=== PATIENT | female | born 1945 | race Two or more races ===

== ENCOUNTER 2017-01-21 15:54 | Emergency (ER) | payer OTHER ==
[~2017-01-21] VITALS: Ht 160 cm; Wt 59.0 kg
--- NOTE | 2017-01-21 16:05 | NUR ---
BIB RA C/O R L E PAIN X 2 WEEKS, DENIES TRAUMA, NAD NOTED, VSS, PUT ON MONITOR, WAITING FOR MD JENNIFER.
[2017-01-21] MEDS ORDERED: DEXAMETHASONE SOD PHOSPHATE 10 MG/ML VIAL ONE (16:43)
[2017-01-21] MEDS ORDERED: HYDROCODONE/APAP 5/325MG 1 EACH TABLET ONE (16:43)
[2017-01-21] MEDS ORDERED: KETOROLAC TROMETHAMINE INJ 30 MG/ML VIAL ONE (16:43)
[2017-01-21] MEDS ORDERED: ONDANSETRON 4 MG TAB.RAPDIS ONE (16:44)
--- NOTE | 2017-01-21 16:56 | NUR ---
XRAY AT BS
[2017-01-21] MEDS ORDERED: HYDROCODONE/APAP 5/325MG 1 EACH TABLET PO ONE (17:00)
[2017-01-21] MEDS ORDERED: KETOROLAC TROMETHAMINE INJ 60 MG/2 ML VIAL IM ONE (17:00)
[2017-01-21] MEDS ORDERED: ONDANSETRON 4 MG TAB.RAPDIS PO ONE (17:00)
[2017-01-21] MEDS ORDERED: DEXAMETHASONE SOD PHOSPHATE 4 MG/ML VIAL IM ONE (17:00)
[2017-01-21 18:22] VITALS: BP 129/79
--- NOTE | 2017-01-21 18:23 | NUR ---
Patient discharged to home in stable condition. Written and verbal after care instructions given. Patient verbalizes understanding of instruction. Prescription given.
== END 2017-01-21 18:24 | disposition home or self-care (01) ==
LOC: ER 15:57
DX: M17.11 Unilateral primary osteoarthritis, right knee (principal); M16.11 Unilateral primary osteoarthritis, right hip; I10 Essential (primary) hypertension; K21.9 Gastro-esophageal reflux disease without esophagitis; Z88.5 Allergy status to narcotic agent; Z88.8 Allergy status to other drugs, medicaments and biological substances
CPT/HCPCS: 73502; 73564-TC; A4606; J1100; J1885; Q0162; Z7610

== ENCOUNTER 2017-03-21 18:15 | Emergency (ER) | payer OTHER ==
[~2017-03-21] VITALS: Ht 154.9 cm; Wt 74.8 kg
--- NOTE | 2017-03-21 18:17 | NUR ---
PT AMBULATORY TO ER BED 10 C/O GENERALIZED WEAKNESS, FEVER AND CHILLS FOR 1 WEEK NOW. STATES NOT GETTING BETTER AND IS WORST TODAY. PT IS AFEBRILE [employer]EXER. AWAITING MD RODRIGUEZ.
[2017-03-21] MEDS ORDERED: IV NS 0.9% 1,000 ML BAG IV ONE (18:30)
--- NOTE | 2017-03-21 18:30 | NUR ---
DR HAMM AT BEDSIDE FOR EVAL.
--- NOTE | 2017-03-21 18:46 | NUR ---
IV LINE STARTED BLOOD DRAWN AND SENT TO LAB.
[2017-03-21 18:54] LABS: BASOPHILS % (AUTO) 0.3 % (0.0-2.0); EOSINOPHILS # (AUTO) 0.1 /CMM (0.0-0.7); HEMATOCRIT 38 % (33-45); HEMOGLOBIN 12.6 g/dL (11.5-14.8); LYMPHOCYTES # (AUTO) 0.6 /CMM (0.8-4.8); LYMPHOCYTES % (AUTO) 19.4 % (20.0-44.0); MEAN CORPUSCULAR HEMOGLOBIN 29 PG (26.0-33.0); MEAN CORPUSCULAR HGB CONC 33 g/dl (31.0-36.0); MEAN CORPUSCULAR VOLUME 86 fL (82-100); MONOCYTES # (AUTO) 0.6 /CMM (0.1-1.30); MONOCYTES % (AUTO) 19.5 % (2.0-12.0); NEUTROPHILS # (AUTO) 1.7 /CMM (1.8-8.9); NEUTROPHILS % (AUTO) 56.8 % (43.0-81.0); PLATELET COUNT (AUTO) 137 /CMM (150-450); RDW COEFFICIENT OF VARIATION 14.1 (11.5-15.0); RED BLOOD CELL COUNT(AUTO) 4.43 MIL/uL (4.0-5.2)
--- NOTE | 2017-03-21 18:55 | NUR ---
RADIOLOGY AT BEDSIDE FOR CHEST XRAY.
[2017-03-21 19:12] LABS: ALANINE AMINOTRANSFERASE 14 U/L (12-78); ALBUMIN 3.3 g/dL (3.4-5.0); ALKALINE PHOSPHATASE 126 U/L (46-116); ASPARTATE AMINOTRANSFERASE 14 U/L (15-37); BILIRUBIN,DIRECT 0.1 mg/dL (0.0-0.2); BILIRUBIN,TOTAL 0.5 mg/dL (0.2-1.0); CARBON DIOXIDE 24 mmol/L (21-32); CHLORIDE 106 mmol/L (98-107); CREATININE 2.5 mg/dL (0.6-1.3); GLUCOSE 236 mg/dL (74-106); POTASSIUM 3.8 mmol/L (3.5-5.1); SODIUM SERUM 140 mmol/L (136-145); TOTAL PROTEIN, SERUM 7.1 g/dL (6.4-8.2); UREA NITROGEN, BLOOD 43 mg/dL (7-18)
[2017-03-21 19:14] LABS: TROPONIN I < 0.017 ng/mL (0.00-0.056)
[2017-03-21 19:22] LABS: APPEARANCE,URINE Clear (CLEAR); BILIRUBIN,URINE LARGE (NEGATIVE); BLOOD, URINE Negative Ery/uL (NEGATIVE); COLOR,URINE Yellow (YELLOW); KETONES,URINE Trace (NEGATIVE); LEUKOCYTE ESTERASE ,URINE Negative (NEGATIVE); NITRITE, URINE Negative (NEGATIVE); PH,URINE 5.5 (5.0-8.0); PROTEIN,URINE 30 mg/dl (NEGATIVE); UGLUCOSE 100 MG/DL mg/dL (NEGATIVE); UROBILINOGEN,URINE 0.2 EU/dL (0.2)
[2017-03-21] MEDS ORDERED: ASPI-1152 PO (19:23)
[2017-03-21] MEDS ORDERED: COLE625T9 PO (19:23)
[2017-03-21] MEDS ORDERED: LINA5TAB PO (19:23)
[2017-03-21] MEDS ORDERED: DORZ10DR13 EACHEYE (19:23)
[2017-03-21] MEDS ORDERED: REPA1TAB PO (19:23)
[2017-03-21] MEDS ORDERED: PANT40TA2 PO (19:23)
[2017-03-21] MEDS ORDERED: AMLO5TAB4 PO (19:23)
[2017-03-21] MEDS ORDERED: HUM10VIA5 SQ ×2 (19:23)
[2017-03-21] MEDS ORDERED: HYDR25TA4 PO (19:23)
[2017-03-21] MEDS ORDERED: LATA2.5D2 EACHEYE (19:23)
[2017-03-21] MEDS ORDERED: SIMV20TA2 PO (19:23)
[2017-03-21] MEDS ORDERED: ISOS30TA6 PO (19:23)
[2017-03-21] MEDS ORDERED: METF10002 PO (19:23)
[2017-03-21] MEDS ORDERED: BRIM5DRO3 EACHEYE (19:23)
[2017-03-21 19:39] LABS: INR 1.04 (0.87-1.13); PROTHROMBIN TIME 10.8 SECS (9.5-12.7)
[2017-03-21 20:11] LABS: BACTERIA,URINE Few /HPF (None Seen); SQUAMOUS EPITHELIAL CELL,UR Moderate /HPF (None Seen)
[2017-03-21 20:12] LABS: RBC,URINE 0-2 /HPF (0-2); WBC,URINE 0-2 /HPF (0-3)
--- NOTE | 2017-03-21 20:48 | NUR ---
Patient discharged to home in stable condition. Written and verbal after care instructions given. Patient verbalizes understanding of instruction.
[2017-03-21 20:51] VITALS: BP 142/70
== END 2017-03-21 20:52 | disposition home or self-care (01) ==
LOC: ER 18:16
DX: J06.9 Acute upper respiratory infection, unspecified (principal); I10 Essential (primary) hypertension; K21.9 Gastro-esophageal reflux disease without esophagitis; Z79.82 Long term (current) use of aspirin; Z79.4 Long term (current) use of insulin
CPT/HCPCS: 36415; 71010-TC; 80048-TC; 80076-TC; 81000-TC; 83605-TC; 84484-TC; 85025-TC; 85730-TC; 87040-TC; 87086-TC; A4606; J7030; Z7610

== ENCOUNTER 2024-10-29 14:39 | Inpatient (IN) | payer MEDICARE, OTHER ==
[~2024-10-29] VITALS: Ht 154.9 cm; Wt 49.5 kg
[~2024-10-29 14:39] MED LIST: AMLO5TAB4 PO; ASPI-1420 PO; BRIM5DRO3 EACHEYE; COLE625T9 PO; DORZ10DR13 EACHEYE; HUM10VIA5 SQ; HYDR25TA4 PO; ISOS30TA86 PO; LATA2.5D2 EACHEYE; LINA5TAB PO; METF-442 PO; PANT40TA2 PO; REPA1TAB PO; SIMV20TA2 PO
[2024-10-29 15:14] LABS: PLATELET COUNT (AUTO) 76 K/uL (150-450); RED BLOOD CELL COUNT(AUTO) 3.35 MIL/uL (4.0-5.2); RED CELL DISTRIBUTION WIDTH 14.0 % (11.5-15.0); WHITE BLOOD COUNT (AUTO) 5.3 K/uL (4.3-11.0)
[2024-10-29] MEDS ORDERED: ASPI-1169 PO (15:16)
[2024-10-29] MEDS ORDERED: METH500T6 PO (15:16)
[2024-10-29] MEDS ORDERED: LOSA50TA39 PO ×2 (15:16)
[2024-10-29] MEDS ORDERED: ACET325T53 PO ×2 (15:16)
[2024-10-29] MEDS ORDERED: FOLI0.4T6 PO (15:16)
[2024-10-29] MEDS ORDERED: CLON0.1T PO (15:16)
[2024-10-29] MEDS ORDERED: ONDA-97 PO (15:16)
[2024-10-29] MEDS ORDERED: LEVO200T8 PO (15:16)
[2024-10-29] MEDS ORDERED: SEVE800T8 PO (15:16)
[2024-10-29] MEDS ORDERED: FAMO-131 PO (15:16)
[2024-10-29] MEDS ORDERED: HYDR-3973 PO (15:16)
[2024-10-29] MEDS ORDERED: CARV25TA PO (15:16)
[2024-10-29] MEDS ORDERED: DOCU100C36 PO (15:16)
[2024-10-29] MEDS ORDERED: AMLO-213 PO ×2 (15:16)
[2024-10-29] MEDS ORDERED: AMIN30LI2 PO (15:16)
[2024-10-29] MEDS ORDERED: NALO4SPR NS (15:16)
[2024-10-29] MEDS ORDERED: OLAN5TAB3 PO (15:16)
[2024-10-29] MEDS ORDERED: HYDR100T27 PO (15:16)
[2024-10-29] MEDS ORDERED: FOLI0.8T43 PO (15:16)
[2024-10-29 15:25] LABS: CALCIUM, SERUM 9.2 mg/dL (8.5-10.1); CREATININE 2.5 mg/dL (0.6-1.3); SODIUM SERUM 140 mmol/L (136-145); UREA NITROGEN, BLOOD 24 mg/dL (7-18)
[2024-10-29 15:34] LABS: ASPARTATE AMINOTRANSFERASE 11 U/L (15-37); TOTAL PROTEIN, SERUM 6.4 g/dL (6.4-8.2)
[2024-10-29 16:29] LABS: LYMPHOCYTES % (MANUAL) 24 % (16-48); MONOCYTES % (MANUAL) 11 % (0-11.0); NEUTROPHILS % (MANUAL) 63 (42-76); REACTIVE LYMPHOCYTES 2 % (0-0)
[2024-10-29 16:30] LABS: PLATELET ESTIMATE DECREASED
[2024-10-29] MEDS ORDERED: hydrALAZINE HCL IV 20 MG VIAL ONE (17:06)
[2024-10-29] MEDS: hydrALAZINE HCL IV 20 MG VIAL IV PRN (17:10)
[2024-10-29] MEDS ORDERED: ACETAMINOPHEN 325 MG TABLET PO PRN ×3 (18:00)
[2024-10-29] MEDS ORDERED: MAGNESIUM HYDROXIDE 30 ML UDC PO PRN (18:00)
[2024-10-29] MEDS ORDERED: HYDROCODONE/APAP 5/325MG TABLET PO PRN (18:00)
[2024-10-29] MEDS ORDERED: ZOLPIDEM TARTRATE 5 MG TABLET PO PRN (18:00)
[2024-10-29] MEDS ORDERED: CLONIDINE HCL 0.1 MG TABLET PO PRN (18:00)
[2024-10-29] MEDS ORDERED: ONDANSETRON HCL/PF 4 MG/2 ML VIAL IVP PRN (18:00)
[2024-10-29] MEDS ORDERED: MAG HYDROX/AL HYDROX/SIMETH 30 ML UDC PO PRN (18:00)
[2024-10-29] MEDS ORDERED: Z GUARD REMEDY 4 OZ OINT TP PRN (18:00)
[2024-10-29] MEDS ORDERED: METHOCARBAMOL (500MG) 500 MG TABLET PO PRN (18:00)
[2024-10-29] MEDS ORDERED: NALOXONE HCL 0.4 MG/ML AMPUL IV PRN (18:04)
[2024-10-29] MEDS ORDERED: ONDANSETRON 4 MG TAB.RAPDIS PO PRN (18:30)
[2024-10-29 20:00] VITALS: BP 181/81; TEMP 97.3; O2SAT 95
[2024-10-29] MEDS ORDERED: HEPARIN SODIUM, PORCINE 5000 UNITS/1 ML VIAL SQ SCH (21:00)
[2024-10-29] MEDS: CARVEDILOL 12.5 MG TABLET PO SCH (21:11)
[2024-10-29] MEDS: LATANOPROST EYE DROP 0.005% 2.5 ML BOTTLE EACHEYE SCH (21:11)
[2024-10-30] VITALS (7 sets, daily range): BP systolic 149–174; BP diastolic 53–99; TEMP 97.7–98.6; O2SAT 94–99
[2024-10-30 06:42] LABS: PLATELET COUNT (AUTO) 77 K/uL (150-450); RED BLOOD CELL COUNT(AUTO) 3.25 MIL/uL (4.0-5.2); RED CELL DISTRIBUTION WIDTH 14.0 % (11.5-15.0); WHITE BLOOD COUNT (AUTO) 4.7 K/uL (4.3-11.0)
[2024-10-30 07:01] LABS: CALCIUM, SERUM 10.1 mg/dL (8.5-10.1); CREATININE 3.2 mg/dL (0.6-1.3); PHOSPHORUS 4.8 mg/dL (2.5-4.9); SODIUM SERUM 144 mmol/L (136-145); UREA NITROGEN, BLOOD 32 mg/dL (7-18)
[2024-10-30 08:08] LABS: LYMPHOCYTES % (MANUAL) 17 % (16-48); MONOCYTES % (MANUAL) 19 % (0-11.0); NEUTROPHILS % (MANUAL) 64 (42-76); PLATELET ESTIMATE DECREASED
[2024-10-30] MEDS: OLANZAPINE 5 MG TABLET PO SCH (08:32)
[2024-10-30] MEDS: PROSOURCE / PROSTAT (PYXIS) 30 ML UDC PO SCH (08:32)
[2024-10-30] MEDS: DOCUSATE SODIUM 100 MG CAPSULE PO SCH (08:32)
[2024-10-30] MEDS: LOSARTAN POTASSIUM 50 MG TABLET PO SCH (08:32)
[2024-10-30] MEDS: SEVELAMER CARBONATE 800 MG TABLET PO SCH (08:33)
[2024-10-30] MEDS: ISOSORBIDE MONONITRATE (30MG) 30 MG TAB.SR.24H PO SCH (08:33)
[2024-10-30] MEDS: VIT B CMPLX 3/FA/VIT C/BIOTIN 1 TAB TABLET PO SCH (08:33)
[2024-10-30] MEDS: FAMOTIDINE (20 MG) 20 MG TABLET PO SCH (08:34)
[2024-10-30] MEDS: PANTOPRAZOLE 40 MG TABLET.DR PO SCH (08:34)
[2024-10-30] MEDS: LEVOTHYROXINE SODIUM 100 MCG TABLET PO SCH (08:34)
[2024-10-30] MEDS: AMLODIPINE BESYLATE 10 MG TABLET PO SCH (08:34)
[2024-10-30] MEDS: ASPIRIN 81 MG TAB.CHEW PO SCH (08:34)
[2024-10-30] MEDS: FOLIC ACID 1 MG TABLET PO SCH (08:34)
[2024-10-30 14:15] LABS: ABG BASE EXCESS 7.2 mmol/L (-2.0-3.0); ABG OXYGEN SATURATION 84.0 % (94.0-98.0); ABG PCO2 45.8 mmHg (32.0-45.0); ABG PH 7.461 (7.350-7.450); ABG PO2 50.0 mmHg (83.0-108.0); ABG TOTAL HEMOGLOBIN 11.3 G/dL (12.0-16.0); FRACTIONATED INSPIRED OXYGEN 21.0 %; SITE, ABG LEFT RADIAL
[2024-10-30] MEDS: ATORVASTATIN 40 MG TABLET PO SCH (15:00)
[2024-10-31] VITALS (7 sets, daily range): BP systolic 130–164; BP diastolic 57–70; TEMP 97.3–98.6; O2SAT 96–100
[2024-10-31] MEDS: hydrALAZINE HCL IV 20 MG VIAL IV PRN (00:55)
[2024-10-31] MEDS: DEXTROSE 50%-WATER 50 ML DISP.SYRIN IVP PRN (02:36)
[2024-10-31] MEDS: LEVOTHYROXINE INJ 100 MCG VIAL IV SCH (09:20)
[2024-10-31] MEDS: HEPARIN SODIUM, PORCINE 5000 UNITS/1 ML VIAL SQ SCH (09:42)
[2024-10-31] MEDS: Z GUARD REMEDY 4 OZ OINT TP SCH (18:48)
[2024-11-01] VITALS (7 sets, daily range): BP systolic 122–160; BP diastolic 48–69; TEMP 97.6–98.4; O2SAT 100
[2024-11-01 06:35] LABS: PLATELET COUNT (AUTO) 76 K/uL (150-450); RED BLOOD CELL COUNT(AUTO) 3.46 MIL/uL (4.0-5.2); RED CELL DISTRIBUTION WIDTH 13.9 % (11.5-15.0); WHITE BLOOD COUNT (AUTO) 4.9 K/uL (4.3-11.0)
[2024-11-01 06:46] LABS: ASPARTATE AMINOTRANSFERASE 9.0 U/L (15-37); CALCIUM, SERUM 10.1 mg/dL (8.5-10.1); CREATININE 3.1 mg/dL (0.6-1.3); PHOSPHORUS 5.1 mg/dL (2.5-4.9); SODIUM SERUM 139.0 mmol/L (136-145); TOTAL PROTEIN, SERUM 6.1 g/dL (6.4-8.2); UREA NITROGEN, BLOOD 25.0 mg/dL (7-18)
[2024-11-01 07:50] LABS: BAND % (MANUAL) 1 % (0.0-5.0); LYMPHOCYTES % (MANUAL) 23 % (16-48); METAMYELOCYTES % 1 % (0-0); MONOCYTES % (MANUAL) 6 % (0-11.0); MYELOCYTES % 3 % (0-0); NEUTROPHILS % (MANUAL) 66 (42-76); PLATELET ESTIMATE DECREASED
[2024-11-02] VITALS: BP 101/76; TEMP 97.7; O2SAT 100
[2024-11-02 04:00] VITALS: BP 119/75; TEMP 97.9; O2SAT 100
[2024-11-02 08:00] VITALS: BP 112/52; TEMP 97.8; O2SAT 100
[2024-11-02 12:00] VITALS: BP 113/67; TEMP 97.9; O2SAT 100
[2024-11-02 17:00] VITALS: BP 115/52
== END 2024-11-02 18:30 | DRG 304 ==
LOC: ER 14:56 → MED 16:42 → TELE 22:17
PROVIDERS: ADMIT Student in an Organized Health Care Education/Training Program; ATTEND Internal Medicine
PROC: 5A1D70Z Performance of Urinary Filtration, Intermittent, Less than 6 Hours Per Day (ICD-10-PCS; principal; 2024-10-30)
DX: I16.0 Hypertensive urgency (principal); G93.41 Metabolic encephalopathy; N18.6 End stage renal disease; I63.9 Cerebral infarction, unspecified; I50.23 Acute on chronic systolic (congestive) heart failure; E44.1 Mild protein-calorie malnutrition; Z79.4 Long term (current) use of insulin; R62.7 Adult failure to thrive; I13.2 Hypertensive heart and chronic kidney disease with heart failure and with stage 5 chronic kidney disease, or end stage renal disease; D69.6 Thrombocytopenia, unspecified; D64.9 Anemia, unspecified; E03.9 Hypothyroidism, unspecified; E21.3 Hyperparathyroidism, unspecified; E78.5 Hyperlipidemia, unspecified; F20.9 Schizophrenia, unspecified; I25.10 Atherosclerotic heart disease of native coronary artery without angina pectoris; Z85.528 Personal history of other malignant neoplasm of kidney; Z99.2 Dependence on renal dialysis; R53.1 Weakness; E11.22 Type 2 diabetes mellitus with diabetic chronic kidney disease; K21.9 Gastro-esophageal reflux disease without esophagitis; I73.9 Peripheral vascular disease, unspecified; K76.82 Hepatic encephalopathy; L89.156 Pressure-induced deep tissue damage of sacral region; L98.8 Other specified disorders of the skin and subcutaneous tissue; Z68.20 Body mass index [BMI] 20.0-20.9, adult
CPT/HCPCS: 36415; 36600; 70450-TC; 71045-TC; 80048-TC; 80053-TC; 80076-TC; 82140-TC; 82803-TC; 82962-TC; 83690-TC; 83735-TC; 83880; 84100-TC; 84439-TC; 84443-TC; 84484-TC; 85027-TC; 87081-TC; 87340; 90935-TC; 92526; 92611; 93307-TC; 97110-TC; 97112-TC; 97530-TC; A6403; G0378; J0360; J1644; J7030